=== PATIENT | female | born 1940 | race Caucasian/White ===

== ENCOUNTER → 2023-12-12 11:13 | Outpatient (REF) | payer MEDICARE, OTHER, SELFPAY | LOC: RCS 11:13 | PROVIDERS: ATTENDING PHYSICIAN Nuclear Medicine Nuclear Cardiology; FAMILY PHYSICIAN Nurse Practitioner Family | DX: I49.3 Ventricular premature depolarization (principal); I35.1 Nonrheumatic aortic (valve) insufficiency; I36.1 Nonrheumatic tricuspid (valve) insufficiency | CPT/HCPCS: 93306 ==

== ENCOUNTER → 2023-12-13 15:38 | Outpatient (REF) | payer MEDICARE, OTHER, SELFPAY | LOC: RAD 15:38 | PROVIDERS: ATTENDING PHYSICIAN Neurological Surgery; FAMILY PHYSICIAN Nurse Practitioner Family | DX: G91.2 (Idiopathic) normal pressure hydrocephalus (principal) | CPT/HCPCS: 70450 ==

== ENCOUNTER → 2024-11-05 08:51 | Outpatient (REF) | payer MEDICARE, OTHER, SELFPAY | LOC: RAD 08:51 | PROVIDERS: ATTENDING PHYSICIAN Physician Assistant; FAMILY PHYSICIAN Nurse Practitioner Family | DX: M81.0 Age-related osteoporosis without current pathological fracture (principal); E04.2 Nontoxic multinodular goiter | CPT/HCPCS: 76536; 77080 ==

== ENCOUNTER 2024-12-30 10:44 | Outpatient (RCR) | payer MEDICARE, OTHER, SELFPAY ==
[2024-12-30 10:53] VITALS: BP 136/90
[2024-12-30] MEDS: EVENITY 105 MG SC ×2 (11:09→11:10)
== END 2024-12-31 08:37 | disposition home or self-care (01) ==
LOC: OID 10:44
PROVIDERS: ATTENDING PHYSICIAN Physician Assistant; FAMILY PHYSICIAN Nurse Practitioner Family
DX: M81.0 Age-related osteoporosis without current pathological fracture (principal)
CPT/HCPCS: 96372; J3111

== ENCOUNTER 2025-01-27 14:48 | Outpatient (RCR) | payer MEDICARE, OTHER, SELFPAY ==
[2025-01-27 14:55] VITALS: BP 153/78
[2025-01-27] MEDS: EVENITY 105 MG SC ×2 (15:08)
== END 2025-01-29 08:08 | disposition home or self-care (01) ==
LOC: OID 14:48
PROVIDERS: ATTENDING PHYSICIAN Physician Assistant; FAMILY PHYSICIAN Nurse Practitioner Family
DX: M81.0 Age-related osteoporosis without current pathological fracture (principal)
CPT/HCPCS: 96372; J3111

== ENCOUNTER 2025-02-24 09:50 | Outpatient (RCR) | payer MEDICARE, OTHER, SELFPAY ==
[2025-02-24 10:15] VITALS: BP 143/78
[2025-02-24] MEDS: EVENITY 105 MG SC ×2 (10:30)
== END 2025-02-25 08:15 | disposition home or self-care (01) ==
LOC: OID 09:50
PROVIDERS: ATTENDING PHYSICIAN Physician Assistant; FAMILY PHYSICIAN Nurse Practitioner Family
DX: M81.0 Age-related osteoporosis without current pathological fracture (principal)
CPT/HCPCS: 96372; J3111